=== PATIENT | male | born 1965 | race Caucasian/White ===

== ENCOUNTER 2023-01-03 16:48 | Emergency (ER) | payer OTHER ==
[2023-01-03 17:15] VITALS: RESP 20; TEMP 98.6; BMI 28.3
[2023-01-03 17:41] VITALS: BP 121/83; PULSE 95
== END 2023-01-03 18:20 | disposition home or self-care (01) ==
LOC: JER 16:48
DX: R42 Dizziness and giddiness (principal); R51.9 Headache, unspecified
CPT/HCPCS: 93005; 93010; 99283-25

== ENCOUNTER 2024-02-23 08:27 | Emergency (ER) | payer OTHER ==
[2024-02-23 08:49] VITALS: BP 133/85; PULSE 80; RESP 20; TEMP 98.3; BMI 28.8
== END 2024-02-23 10:23 | disposition home or self-care (01) ==
LOC: FER 08:27
DX: S09.90XA Unspecified injury of head, initial encounter (principal); W08.XXXA Fall from other furniture, initial encounter; Y99.0 Civilian activity done for income or pay
CPT/HCPCS: 70450-TC; 72125-TC; 99284-25